=== PATIENT | male | born 1980 | race Caucasian/White ===

== ENCOUNTER → 2020-04-10 11:00 | Outpatient (BNVA) | payer BC, SELFPAY | PROVIDERS: Family Provider Family Medicine; PCP Family Medicine; Visit Provider Nurse Practitioner Family | DX: Z11.59 Encounter for screening for other viral diseases (principal); Z20.828 Contact with and (suspected) exposure to other viral communicable diseases; J02.9 Acute pharyngitis, unspecified; R53.83 Other fatigue | CPT/HCPCS: 87635 ==

== ENCOUNTER 2020-08-05 22:03 | Emergency (ER) | payer BC, SELFPAY ==
[2020-08-05 22:14] VITALS: BP 175/111; PULSE 84; RESP 19; TEMP 36.5; O2SAT 98; BMI 44.1
--- NOTE | 2020-08-05 22:40 | W.ED.ABDPA2 ---
HPI - Abdominal Pain General: Chief Complaint: Abdominal Pain Stated Complaint: lower rt quadrant abd.pain for 51 hours Time Seen by Provider: 08/05/20 22:18 Source: patient Mode of arrival: ambulatory Limitations: no limitations History of Present Illness: HPI narrative: Pleasant 39-year-old male patient presents to the emergency department with 2-day onset of right lower quadrant pain. He reports pain does not radiate, is worse with movement and cough. He denies family history of appendicitis, he denies abdominal surgeries. Last intake of food at 1800 today, drink coffee prior to arrival. History of hypertension, asthma, primary care Dr. Kelvin ALEXANDER elicited complaint: abdominal pain (Localized to the right lower quadrant) Pertinent past history: none Onset (ago): day(s) (2) Pain Consistency: constant (Worsening and more pronounced) Location: RLQ Severity: moderate Quality: sharp Radiation: RLQ Migration to: no migration Exacerbating factors: movement Relieving factors: rest Associated Symptoms: Reports no associated symptoms; Denies bloating, change in bowel habits, chills, constipation, diarrhea, dysuria, fever(s), heartburn, nausea and vomiting Review of Systems General: Reports: 10 or more systems reviewed and unremarkable except in HPI and below Const: Denies: fever(s), chills or diaphoresis Eyes: Denies: blurry vision or eye redness ENMT: Denies: throat pain, dental pain or disequilibrium Card: Denies: chest pain, palpitations or irregular heart rhythm Resp: Denies: dyspnea, productive cough, non-productive cough or wheezing GI: Reports: abdominal pain (localized to the RLQ); Denies: nausea, vomiting, dysphagia, heartburn, diarrhea, constipation, bloating, change in bowel habits or pain on defecation : Denies: difficulty urinating, dysuria or urinary urgency Musc: Denies: neck pain, back pain, joint pain, joint swelling or muscle cramps Skin/Breast: Denies: rash or pruritus Neuro: Denies: headache(s), weakness in extremities or behavioral changes Psych: Denies: anxiety, depression or change in appetite Guy/Lymph: Denies: easy bruising Physical Exam Const: COMMON NORMALS: no acute distress, patient oriented x3, healthy appearing and alert GENERAL APPEARANCE: cooperative, comfortable and well hydrated HENMT: COMMON NORMALS: normocephalic, Normal external nose present and moist oral mucous membranes HEAD & SCALP: normocephalic NOSE: Normal external nose present Eye: COMMON NORMALS: Equal, round and reactive pupils present and EOMs intact bilaterally GENERAL EYE: appearance normal, both eyes and all related structures PUPIL: Yes Equal, round and reactive pupils present Neck/C-Spine: COMMON NORMALS: full ROM and no lymphadenopathy GENERAL: Yes normal visual inspection and Yes trachea midline CERVICAL SPINE: Yes cervical ROM normal Lymph: LYMPHATIC: no lymphadenopathy noted Chest: COMMONS NORMALS: normal inspection of the chest Resp: COMMON NORMALS: normal respiratory effort and clear to auscultation bilaterally AUSCULTATION: clear to auscultation bilaterally Cardio: COMMON NORMALS: regular rhythm, S1 normal heart sound present and S2 normal heart sound present RHYTHM: regular rhythm HEART SOUNDS: S1 normal heart sound present and S2 normal heart sound present GI: COMMON NORMALS: Normal to inspection, nondistended, normoactive bowel sounds present and Soft to palpation INSPECTION: Yes normal to inspection, No Abdominal wall edema, No abdominal distension, Yes central obesity, No scar, No visible pulsation and Yes other (Negative psoas sign) AUSCULTATION: Yes normoactive bowel sounds PALPATION: Yes Soft to palpation, Yes Tenderness to palpation present (GI) Details: RLQ, No Guarding due to palpation present (GI), No Rigid due to palpation, No Hernia present, No Abdominal wall crepitus present, No Rebound tenderness present and Yes Other GI palpation findings present (Negative Moser, positive McBurney's, negative rebound) : COMMON NORMALS: Yes no CVA tenderness BLADDER/KIDNEY EXAM: Yes no CVA tenderness Back/Pelvis: COMMON NORMALS: no CVA tenderness and thoracic and lumbar spine normal to inspection Extremity: COMMON NORMALS: normal to inspection and capillary refill normal Neuro: COMMON NORMALS: patient oriented x3 and no focal motor deficits SENSORIUM/ORIENTATION: Yes alert Psych: COMMON NORMALS: mental status grossly normal, Normal thought process present and cooperative ACTIVITY/MOTOR BEHAVIOR: Yes appropriate eye contact THOUGHT PROCESS: Normal thought process present Skin: COMMON NORMALS: no rashes or lesions noted and turgor normal GENERAL SKIN EXAM: no rashes or lesions noted and turgor normal Course ED course: 39-year-old pleasant male presents to the emergency department with complaints of right lower quadrant pain x2 days, he expresses concern it could be appendicitis. No change in bowel pattern, no fever, vomiting or radiation of pain. CT scan of the abdomen and pelvis with contrast with normal appearance of the appendix, no inflammation noted. Negative free fluid, lymphadenitis appreciated. He reports pain is worse with movement, localized to one area. Muscle strain as possible cause for pain. Toradol administered, advised to take Tylenol for pain with rest of the area until pain is improved. Advised to return to the emergency department if he does develop increased right lower quadrant pain, vomiting or fever. Verbalized understanding. Vital Signs: Vital signs: Vital Signs Temperature 98.1 F 08/06/20 00:49 Pulse Rate 72 08/06/20 00:49 Respiratory Rate 17 08/06/20 00:49 Blood Pressure 164/104 08/06/20 00:49 Pulse Oximetry 97 08/06/20 00:49 MDM - Abdominal Pain Lab Data: Labs: Lab Results 08/05/20 08/05/20 08/05/20 Range/Units 23:00 23:00 23:37 WBC 12.1 H (4.0-10.0) 10^3/ uL RBC 4.95 (4.1-5.3) 10^6/u L Hgb 14.6 (11.7-16.6) g/dL Hct 42.9 (42.0-52.0) % MCV 86.7 (80-94) fL MCH 29.5 (28.0-34.0) pg MCHC 34.0 (30.0-36.0) g/dL RDW 11.7 L (12.1-15.1) % Plt Count 343 (130-400) 10^3/c mm MPV 9.4 (7.4-10.4) fL Neut % (Auto) 62.4 % Lymph % (Auto) 25.6 % Morris % (Auto) 8.0 % Eos % (Auto) 2.8 % Baso % (Auto) 0.8 % Neut # (Auto) 7.53 (1.8-7.7) 10^3/u L Lymph # (Auto) 3.1 (0.8-4.8) 10^3/u L Morris # (Auto) 1.0 H (0.2-0.9) 10^3/u L Eos # (Auto) 0.3 (0.0-0.8) 10^3/u L Baso # (Auto) 0.1 (0.0-0.1) 10^3/u L Nucleated RBC % (a uto) 0 % Nucleated RBCs # 0.0 /100WBC Sodium 137 (136-145) mmol/L Potassium 4.1 (3.5-5.1) mmol/L Chloride 101 (98-107) mmol/L Carbon Dioxide 23 (22-29) mmol/L Anion Gap 17.1 (5-19) BUN 16 (6-20) mg/dL Creatinine 0.7 (0.7-1.2) mg/dL GFR Calculation 124.3 (90-130) mL/min Glucose 139 H (65-115) mg/dL Calculated Osmolal ity 287 (285-295) mOsm/k g Calcium 9.3 (8.5-10.5) mg/dL Total Bilirubin 0.3 (0.15-1.2) mg/dL AST 26 (0-40) U/L ALT 49 H (0-41) U/L Alkaline Phosphata se 93 (40-130) IU/L Total Protein 7.3 (6.6-8.7) g/dL Albumin 4.2 (3.5-5.2) g/dL Globulin 3.1 (1.3-4.6) g/dL Lipase 37 (13-60) U/L Urine Color Yellow (Yellow) Urine Appearance Clear (CLEAR) Urine pH 6.0 (5-7) Ur Specific Gravit y 1.015 (1.005-1.030) Urine Protein Neg (Negative) Urine Glucose (UA) Norm (Normal) Urine Ketones Negative (Negative) Urine Blood Neg (Negative) Urine Nitrate Negative (Negative) Urine Bilirubin Neg (Negative) Urine Urobilinogen Norm (Negative) mg/dL Ur Leukocyte Cecy ase Negative (Negative) Imaging Data ^: CT Abd/Pel: Radiologist's impression: [address] [address] [address] Scan Report Signed Patient: Brian Davis Unit #: [id number] : 1980 Age/Sex: 39 / M ADM Date: 08/05/20 Loc: ER Room/Bed: Attending Dr: Ordering Provider/Ordering MD: Haritha Gotti Date of Service: 08/05/20 Procedure(s): CT abdomen pelvis w con* [id number] Accession Number(s): [id number] Report Number: [id number] PROCEDURE INFORMATION: Exam: CT Abdomen And Pelvis With Contrast Exam date and time: 08/05/2020 10:42 PM Age: 39 years old Clinical indication: Abdominal pain; Localized; Right lower quadrant (rlq); Patient HX: Rlq pain x 3 days; Additional info: Rlq pain x 2 days TECHNIQUE: Imaging protocol: Computed tomography of the abdomen and pelvis with intravenous contrast. Radiation optimization: All CT scans at this facility use at least one of these dose optimization techniques: automated exposure control; mA and/or kV adjustment per patient size (includes targeted exams where dose is matched to clinical indication); or iterative reconstruction. Contrast material: OMNI 300; Contrast volume: 95 ml; Contrast route: INTRAVENOUS (IV); COMPARISON: No relevant prior studies available. RADIATION DOSE METRICS: Total DLP (mGy-cm): 1894.93 FINDINGS: Lungs: Limited assessment of the lung bases fails to reveal evidence for active cardiopulmonary process. Liver: Diffuse fatty infiltration of the liver with hepatomegaly. No visible hepatic mass or cystic structure. Gallbladder and bile ducts: Gallbladder contracted. No visible cholelithiasis. No visible intra or extrahepatic biliary ectasia. Pancreas: Normal. No ductal dilation. Spleen: Normal. No splenomegaly. Adrenal glands: Normal. No mass. Kidneys and ureters: Normal. No hydronephrosis. No visible nephrolithiasis. No visible ureterolithiasis. Stomach and bowel: Assessment of the hollow viscus fails to reveal evidence of active or acute pathology. Nonobstructed bowel pattern. No visible acute diverticulitis. No visible adynamic or reactive ileus. Appendix: The appendix is visualized and appears noninflamed. Intraperitoneal space: No visible evidence of mesenteric lymphadenitis or active mesenteritis/panniculitis. Vasculature: Portal vein patent. The abdominal aorta is nonaneurysmal. Lymph nodes: No current visible evidence of active mesenteric or retroperitoneal lymphadenopathy. Urinary bladder: Unremarkable as visualized. Reproductive: Unremarkable as visualized. Bones/joints: No visible active or acute osseous pathology. Degenerative disc disease with disc space height loss and vacuum disc phenomenon L4/L5 and L5/S1. Soft tissues: Unremarkable. Other findings: Obesity. CT/CT abdomen pelvis w con* [id number] IMPRESSION: 1. Currently no visible evidence of acute abdominal or pelvic pathologic process. 2. The appendix is visualized and appears noninflamed. Radiation Dose CTDIVOL = (mGy): DLP = 1894.93 (mGy-cm) Dictated By: Balwinder Cantrell Signed By: Balwinder Cantrell Signed Date/Time: 08/06/2012 DD/ Discharge Plan Discharge Patient Disposition: Home Clinical Impression: Abdominal pain, RLQ, Muscle strain Condition: Stable Prescriptions: No Action lisinopril 40 mg tablet 40 mg PO DAILY RF: 0 albuterol sulfate [ProAir HFA] 90 mcg/actuation HFA aerosol inhaler 2 puff INHALATION Q6H PRNRF: 0 zolpidem [Ambien] 10 mg tablet PO RF: 0 Discharge Orders: Discharge ED (Routine); Ordered 08/06/20 Ordered By: Haritha Gotti Referrals: Dg Warren MD [Primary Care Provider] - Discharge Diet: Usual diet Discharge Activity: Limit activity as instructed Patient Instructions: Muscle Strain (ED), Abdominal Pain (ED) Activity Restrictions/Additional Instructions: Return to the ED if worsening symptoms such as vomiting, fever or increased RLQ pain occurs May take Tylenol as needed for pain Limit pushing and pulling until RLQ pain improves May apply warm, moist compresses to the area as needed for pain Coding Level of Care Code ED Blanket Folder for Chg Fwd Exam Comprehensive
[2020-08-05 23:05] LABS: Basophils # 0.1 10^3/uL (0.0-0.1); Basophils % 0.8 %; Eosinophils # 0.3 10^3/uL (0.0-0.8); Eosinophils % 2.8 %; Hematocrit 42.9 % (42.0-52.0); Hemoglobin 14.6 g/dL (11.7-16.6); Lymphocytes # 3.1 10^3/uL (0.8-4.8); Lymphocytes % 25.6 %; Mean Corpuscular Hemoglobin 29.5 pg (28.0-34.0); Mean Corpuscular Volume 86.7 fL (80-94); Mean Platelet Volume 9.4 fL (7.4-10.4); Neutrophils # 7.53 10^3/uL (1.8-7.7); Neutrophils % 62.4 %; Nucleated Red Blood Cells % 0 %; Platelet Count 343 10^3/cmm (130-400); Red Blood Count 4.95 10^6/uL (4.1-5.3); Red Cell Distribution Width 11.7 % (12.1-15.1); White Blood Count 12.1 10^3/uL (4.0-10.0)
[2020-08-05 23:26] LABS: Alanine Aminotransferase 49 U/L (0-41); Albumin Level 4.2 g/dL (3.5-5.2); Alkaline Phosphatase 93 IU/L (40-130); Anion Gap 17.1 (5-19); Aspartate Amino Transferase 26 U/L (0-40); Blood Urea Nitrogen 16 mg/dL (6-20); Calcium 9.3 mg/dL (8.5-10.5); Carbon Dioxide 23 mmol/L (22-29); Chloride 101 mmol/L (98-107); Globulin 3.1 g/dL (1.3-4.6); Glomerular Filtration Rate 124.3 mL/min (90-130); Glucose 139 mg/dL (65-115); Lipase 37 U/L (13-60); Osmolality Calculated 287 mOsm/kg (285-295); Potassium 4.1 mmol/L (3.5-5.1); Sodium 137 mmol/L (136-145); Total Bilirubin 0.3 mg/dL (0.15-1.2); Total Protein 7.3 g/dL (6.6-8.7)
[2020-08-05 23:28] VITALS: BP 143/80; PULSE 92; RESP 17; O2SAT 99
[2020-08-05 23:30] VITALS: BP 143/80; PULSE 91; RESP 17; O2SAT 98
[2020-08-05] MEDS: iohexol 300 mg/mL 100 mL Btl IV (23:42)
[2020-08-05 23:46] LABS: Add Urine Microscopic? NO
[2020-08-05 23:49] LABS: Bilirubin Urine Neg (Negative); Blood Urine Neg (Negative); Glucose Urine UA Norm (Normal); Ketones Urine Negative (Negative); Nitrate Urine Negative (Negative); Protein Urine Neg (Negative); Specific Gravity, Urine 1.015 (1.005-1.030); Urine Appearance Clear (CLEAR); Urine Color Yellow (Yellow)
[2020-08-05 23:50] LABS: Leukocyte Esterase Urine Negative (Negative); Urobilinogen Urine Norm (Negative)
[2020-08-06] MEDS: ketorolac 30 mg/mL INJ 15 MG IVP (00:44)
[2020-08-06 00:49] VITALS: BP 164/104; PULSE 72; RESP 17; TEMP 36.7; O2SAT 97
== END 2020-08-06 00:49 | disposition home or self-care (01) ==
PROVIDERS: Emergency Medicine; Emergency Provider Nurse Practitioner Family; PCP Family Medicine
DX: S39.011A Strain of muscle, fascia and tendon of abdomen, initial encounter (principal); X58.XXXA Exposure to other specified factors, initial encounter
CPT/HCPCS: 12345; 74177; 80053; 81003; 83690; 85025; 96374; 96375; 99283; J1885; Q9967

== ENCOUNTER 2021-09-13 12:00 | Outpatient (CLI) | payer BC, SELFPAY | END 2021-09-13 12:01 | disposition home or self-care (01) | LOC: SLEEP 09-14 13:06 | PROVIDERS: PCP Family Medicine; Visit Provider Family Medicine | DX: G47.10 Hypersomnia, unspecified (principal) | CPT/HCPCS: G0399 ==

== ENCOUNTER → 2021-11-08 15:39 | Outpatient (BNVA) | payer BC, SELFPAY | PROVIDERS: PCP Family Medicine; Visit Provider Surgery | DX: Z20.822 Contact with and (suspected) exposure to COVID-19 (principal) | CPT/HCPCS: 87635 ==

== ENCOUNTER 2021-11-12 07:50 | Day surgery (SDC) | payer BC, SELFPAY ==
[2021-11-10 12:24] VITALS: BMI 40.1
--- NOTE | 2021-11-12 08:01 | P.ANESASSM_ITS ---
Pre-Anesthetic Assessment Height/Weight: Height 1.78 m Weight 127.006 kg Preop Diagnosis: Abdominal pain Operation Date: 11/12/21 09:15 Proposed Procedures p EGD r10.12/12855(Not Applicable) - Bryn Monroy MD Familial anesthetic complications: I was a little difficult to wake up from the propofol last time Was Beta Daisha taken within 24 hours: N/A Was Clonidine taken within 24 hours: N/A Last intake: > 8 hrs Social No alcohol and No tobacco Exam alert, oriented x 3, clear to auscultation bilaterally and regular rate & rhythm Airway Mallampati: Class II Dentition: full Pulmonary Asthma (rarely needs inhaler) CV/HEM Hypertension None reported Hepatic None reported GI Gastroesophageal Reflux Disease Metabolic Diabetes Mellitus (recently diagnosed) and Hyperlipidemia [facility] None reported Neuropsych None reported Anesthetic Plan ASA status: 2 Anesthesia: MAC Medications/Allergies Home Medications Medication Instructions Recorded Confirmed Last Taken Type albuterol sulfate 90 mcg/actuation 2 puff INHALATION Q6H PRN 04/10/20 11/10/21 Unknown History aerosol inhaler (ProAir HFA) lisinopril 40 mg tablet 40 mg PO DAILY 04/10/20 11/10/21 Unknown History zolpidem 10 mg tablet (Ambien) 10 mg PO DAILY 04/10/20 11/10/21 Unknown History metformin 500 mg tablet,extended 1,000 mg PO DAILY 11/10/21 11/10/21 Unknown History release 24 hr multivitamin 2 tab PO DAILY 11/10/21 11/10/21 Unknown History omega 9-axa-qzz-fish oil 300 1 cap PO DAILY 11/10/21 11/10/21 Unknown History mg-1,000 mg capsule (Fish Oil) pantoprazole 40 mg tablet,delayed 40 mg PO DAILY 11/10/21 11/10/21 Unknown History release rosuvastatin 40 mg tablet 40 mg PO DAILY 11/10/21 11/10/21 Unknown History semaglutide (Ozempic) 0.5 mg SUBCUT DIRECTED 11/10/21 11/10/21 Unknown History Allergies Allergy/AdvReac Type Severity Reaction Status Date / Time Calcium Channel Blocking Allergy Unknown Verified 09/24/21 17:33 Agents-Dih latex Allergy ALGY-Rash Verified 09/24/21 17:33 PFSH Anesthesia Social History Smoking and tobacco status: former smoker Data Anesthesia Cardiac Studies: No Data to Display
[2021-11-12 08:24] VITALS: BP 127/82; PULSE 81; RESP 16; TEMP 36.1; O2SAT 96
[2021-11-12] MEDS: sodium chloride 0.9% 1,000 ML 30 ML IV (08:38)
--- NOTE | 2021-11-12 08:44 | P.HP_ITS ---
Same Day Surgery H&P Indication for Procedure/HPI DATE OF PROCEDURE: November 12, 2021 CHIEF COMPLAINT/INDICATIONFOR SURGICAL PROCEDURE: Abdominal pain PREOP DIAGNOSIS: Abdominal pain PLANNED PROCEDURE: Operation Date: 11/12/21 09:15 Proposed Procedures p EGD r10.12/05339(Not Applicable) - Bryn Monroy MD 09/23/2021 This is a pleasant 40 years old gentleman morbidly obese with a current weight of 297 pounds and BMI of 42.6, patient reports that he has history of upper abdominal pain particularly towards the left side associated with history of acid reflux and has been started on PPI for the past 3 weeks or so. He reports that he cannot each much, have early satiety no nausea or vomiting yet there is heartburn. The pain is mostly sharp gets better without eating gets worse with full stomach. Patient is well known history of diabetes mellitus type 2 which raises my concern for gastroparesis. Also he was recently diagnosed with severe obesity related obstructive sleep apnea. Patient is referred to my practice for further evaluation 11/12/2021 Patient comes today for diagnostic EGD. Gastric emptying studies are pending ROS All systems have been reviewed negative except as the above or problem list Medications/Allergies* Home Medications Medication Instructions Recorded Confirmed Type albuterol sulfate 90 mcg/actuation 2 puff INHALATION Q6H PRN 04/10/20 11/12/21 History aerosol inhaler (ProAir HFA) lisinopril 40 mg tablet 40 mg PO DAILY 04/10/20 11/10/21 History zolpidem 10 mg tablet (Ambien) 10 mg PO DAILY 04/10/20 11/10/21 History metformin 500 mg tablet,extended 1,000 mg PO DAILY 11/10/21 11/10/21 History release 24 hr multivitamin 2 tab PO DAILY 11/10/21 11/10/21 History omega 8-ski-dqi-fish oil 300 1 cap PO DAILY 11/10/21 11/10/21 History mg-1,000 mg capsule (Fish Oil) pantoprazole 40 mg tablet,delayed 40 mg PO DAILY 11/10/21 11/10/21 History release rosuvastatin 40 mg tablet 40 mg PO DAILY 11/10/21 11/10/21 History semaglutide (Ozempic) 0.5 mg SUBCUT DIRECTED 03/16/22 03/16/22 History Allergies/Adverse Reactions Allergy/AdvReac Type Severity Reaction Status Date / Time Calcium Channel Blocking Allergy Unknown Verified 11/12/21 08:45 Agents-Dih latex Allergy ALGY-Rash Verified 11/12/21 08:45 Current Medications: Generic Name Dose Route Start Last Admin Trade Name Freq PRN Reason Stop Dose Admin Sodium Chloride 1,000 mls @ 30 mls/hr 11/12/21 08:00 11/12/21 08:38 Sodium Chloride 0.9% IV 11/13/21 07:59 30 mls/hr .Q24H VIN Administration Pertinent History/Comorbid Conditions* Social History Smoking and tobacco status: former smoker Pertinent Exam Findings alert, oriented x 3, regular rate & rhythm and procedure specific exam findings (Abdominal examination nontender nondistended soft) Recommendations Surgery/Procedure today (Diagnostic EGD) Coding Level of Care Code Acute Can Filling Room Sweeper for Bakari Tompkins
[2021-11-12 09:34] VITALS: BP 124/69; PULSE 80; RESP 16; TEMP 36.4; O2SAT 94
[2021-11-12 09:43] VITALS: BP 146/95; PULSE 72; RESP 18; O2SAT 98
--- NOTE | 2021-11-12 09:45 | ANE.PACU2 ---
Inpatient post-anesthesia follow up: Airway intact: Yes Vital signs: Temperature 97.6 F Pulse Rate 72 Respiratory Rate 18 Blood Pressure 146/95 Pulse Oximetry 98 Oxygen Delivery Me thod Room Air Oxygen Flow Rate Fraction of Inspir ed Oxygen Hydration adequate: Yes Nausea and vomiting: No Pain level: 1 Mental status: Baseline
[2021-11-12 10:00] VITALS: BP 130/93; PULSE 66; RESP 18; TEMP 36.4; O2SAT 99
== END 2021-11-12 10:05 | disposition home or self-care (01) ==
PROVIDERS: PCP Family Medicine; Visit Provider Surgery
PROC: 0DJ08ZZ Inspection of Upper Intestinal Tract, Via Natural or Artificial Opening Endoscopic (ICD-10-PCS; CPT 43235; principal; 2021-11-12 09:15)
DX: R10.12 Left upper quadrant pain (principal); K21.00 Gastro-esophageal reflux disease with esophagitis, without bleeding; K31.89 Other diseases of stomach and duodenum; K29.70 Gastritis, unspecified, without bleeding; K29.80 Duodenitis without bleeding; K21.9 Gastro-esophageal reflux disease without esophagitis; E11.9 Type 2 diabetes mellitus without complications; E78.5 Hyperlipidemia, unspecified; Z79.84 Long term (current) use of oral hypoglycemic drugs; Z87.891 Personal history of nicotine dependence
CPT/HCPCS: 43239; 88305; J2704; J7030

== ENCOUNTER 2021-12-18 08:56 | Emergency (ER) | payer OTHER, BC, SELFPAY ==
[2021-12-18 09:11] VITALS: BP 151/92; PULSE 76; RESP 18; O2SAT 100; BMI 38.0
[2021-12-18] MEDS: ketorolac 30 mg/mL INJ IVP (10:05)
[2021-12-18] MEDS: dexamethasone 10 mg/mL INJ IVP (10:05)
[2021-12-18 10:06] VITALS: RESP 20
[2021-12-18] MEDS: morphine 4 mg/mL SDV 1 mL 6 MG IVP (10:06)
[2021-12-18] MEDS: orphenadrine 30 mg/mL Inj 2 mL 60 MG IVP (10:06)
[2021-12-18 10:07] VITALS: BP 142/105; PULSE 78; RESP 20; O2SAT 100
--- NOTE | 2021-12-18 10:09 | W.ED.BACK ---
HPI - Back Pain/Injury General: Chief Complaint: Back Pain/Injury Stated Complaint: BACK PAIN Time Seen by Provider: 12/18/21 09:02 Source: patient Mode of arrival: ambulatory Limitations: no limitations History of Present Illness: 41-year-old male presents to the emergency room with back pain. 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 No urinary retention reported no fecal incontinence. There is no direct trauma. He has had problems with his back in the past, was exacerbated today as he was transferring a patient. MD elicited complaint: back pain and back injury Pertinent past history: prior back pain Onset (ago): minute(s) Timing: constant Severity: severe Quality: spasming Location: lumbar spine Radiation: left upper leg Exacerbating factors: movement and walking Relieving factors: supine Context: while lifting and turning/twisting Associated symptoms: Deny abdominal pain, arthralgias, chills, change in bowel habits, difficulty walking, dysuria, fatigue, fecal incontinence, fever(s), hematuria, myalgias, nausea, numbness, syncope, tingling/numbness/burning, urinary frequency, urinary urgency, vomiting or weakness Review of Systems Const: Denies: fever(s), chills or fatigue ENMT: Denies: throat pain, ear or mastoid pain, nasal discharge or nasal congestion Card: Denies: syncope Resp: Denies: dyspnea, productive cough or non-productive cough GI: Denies: abdominal pain, nausea, vomiting, fecal incontinence or change in bowel habits : Denies: dysuria, urinary urgency or hematuria Skin/Breast: Denies: rash or pruritus Neuro: Denies: difficulty walking PFS ED PFSH: Medical History (Updated 12/21/21 @ 09:13 by Macario Burks DO) Asthma Diabetic gastroparesis Helicobacter pylori gastritis Morbidly obese Surgical History (Updated 12/21/21 @ 09:13 by Macario Burks DO) History of colonoscopy 2008 or 2009 Social History Smoking and tobacco status: former smoker Physical Exam Const: COMMON NORMALS: no acute distress GENERAL APPEARANCE: cooperative and comfortable ORIENTATION/CONSCIOUSNESS: Yes awake, Yes oriented to person, Yes oriented to place and Yes oriented to time HENMT: COMMON NORMALS: normocephalic, atraumatic and hearing grossly normal bilaterally HEAD & SCALP: normocephalic and atraumatic Neck/C-Spine: COMMON NORMALS: full ROM and no JVD Resp: COMMON NORMALS: normal respiratory effort, No retractions, No use of accessory muscles and clear to auscultation bilaterally AUSCULTATION: clear to auscultation bilaterally Cardio: COMMON NORMALS: no JVD, regular rate, regular rhythm and No murmurs present (Cardio) RATE: regular rate RHYTHM: regular rhythm GI: COMMON NORMALS: Soft to palpation and No hepatosplenomegaly present AUSCULTATION: Yes normoactive bowel sounds PALPATION: Yes Soft to palpation, No Tenderness to palpation present (GI), No Guarding due to palpation present (GI) and Yes No hepatosplenomegaly present Extremity: COMMON NORMALS: normal to inspection, capillary refill normal, no clubbing, cyanosis or edema, no calf tenderness and no pedal edema Neuro: SENSORIUM/ORIENTATION: Yes oriented to person, Yes oriented to place and Yes oriented to time OTHER: Patellar tendon reflexes +1 of 2 at the Achilles tendon sensation lower extremities normal neurovascular intact straight leg raising is positive on the left leg Skin: COMMON NORMALS: no rashes or lesions noted GENERAL SKIN EXAM: no rashes or lesions noted Course Vital Signs: Vital signs: Vital Signs Pulse Rate 78 12/18/21 10:07 Respiratory Rate 20 H 12/18/21 10:07 Blood Pressure 142/105 12/18/21 10:07 Pulse Oximetry 100 12/18/21 10:07 MDM - Back Pain/Injury Medical Decision Making Patient improved with medications given will discharge home with steroid taper hydrocodone as needed diclofenac. Muscle relaxer as needed have him follow-up with primary care or Workmen's Comp. physician in the next 2 to 3 days work restriction given for 10 pounds. Return if has worsening or change or problems. Medical Records I reviewed the patient's medical records. Labs I reviewed the patient's lab results. Laboratory Results Urine Opiates Screen Negative ng/mL (Negative) 12/18/21 10:00 Ur Barbiturates Screen Negative ng/mL (Negative) 12/18/21 10:00 Ur Phencyclidine Scrn Negative ng/mL (Negative) 12/18/21 10:00 Ur Amphetamines Screen Negative ng/mL (Negative) 12/18/21 10:00 U Benzodiazepines Scrn Negative ng/mL (Negative) 12/18/21 10:00 Urine Cocaine Screen Negative ng/mL (Negative) 12/18/21 10:00 U Marijuana (THC) Screen Negative ng/mL (Negative) 12/18/21 10:00 Discharge Plan Discharge Patient Disposition: Home Clinical Impression: Strain of lumbar region Condition: Stable Prescriptions: New hydrocodone-acetaminophen 5-325 mg tablet 1 tab PO Q6H PRN (Reason: pain) Qty: 20 0RF prednisone 20 mg tablet 20 mg PO TID Qty: 15 0RF Rx Instructions: 1 p.o. 3 times daily x3 days, 1 p.o. twice daily x2 days, 1 p.o. daily x2 days diclofenac sodium 75 mg tablet,delayed release (DR/EC) 75 mg PO Q12H PRN (Reason: pain) Qty: 20 0RF tizanidine 4 mg capsule 4 mg PO Q6H PRN (Reason: muscle spasticity) Qty: 30 0RF Rx Instructions: do not exceed 3 doses per 24 hrs No Action lisinopril 40 mg tablet 40 mg PO DAILY 0RF albuterol sulfate [ProAir HFA] 90 mcg/actuation HFA aerosol inhaler 2 puff INHALATION Q6H PRN (Reason: Shortness Of Breath) 0RF zolpidem [Ambien] 10 mg tablet 10 mg PO DAILY 0RF pantoprazole 40 mg tablet,delayed release (DR/EC) 40 mg PO DAILY 0RF metformin 500 mg tablet extended release 24 hr 1,000 mg PO DAILY 0RF rosuvastatin 40 mg tablet 40 mg PO DAILY 0RF multivitamin Tablet,Chewable 2 tab PO DAILY 0RF omega 3-vas-xxf-fish oil [Fish Oil] 300-1,000 mg Capsule 1 cap PO DAILY 0RF Ozempic 0.25 mg or 0.5 mg(2 mg/1.5 mL) pen injector 0.5 mg SUBCUT DIRECTED 0RF Rx Instructions: weekly Discharge Orders: Discharge ED (Routine); Ordered 12/18/21 Ordered By: Macario Burks Referrals: Dg Warren MD [Primary Care Provider] - Discharge Diet: Advance as tolerated Discharge Activity: Limit activity as instructed Patient Instructions: Opioid Safety Activity Restrictions/Additional Instructions: Follow-up with your work comp or primary care doctor within the next 3 days. Do not lift greater than 10 pounds do not lift above the shoulder stoop or bend. Coding Level of Care Code ED [employer] Mechanic for Bakari Tompkins
[2021-12-18 10:30] LABS: Amphetamines Screen Urine Negative (Negative); Barbiturates Screen Urine Negative (Negative); Benzodiazepines Screen Urine Negative (Negative); Cocaine Screen Urine Negative (Negative); Opiate Screen Urine Negative (Negative); PCP Screen Urine Negative (Negative); THC Screen Urine Negative (Negative)
== END 2021-12-18 10:36 | disposition home or self-care (01) ==
PROVIDERS: Emergency Provider Family Medicine; PCP Family Medicine
DX: M54.50 Low back pain, unspecified (principal); S39.012A Strain of muscle, fascia and tendon of lower back, initial encounter; X58.XXXA Exposure to other specified factors, initial encounter
CPT/HCPCS: 80306; 96374; 96375; 99284; J1100; J1885; J2270; J2360

== ENCOUNTER → 2022-05-07 13:48 | Outpatient (BNVA) | payer BC, SELFPAY | PROVIDERS: PCP Family Medicine; Visit Provider Nurse Practitioner Family | DX: S69.91XA Unspecified injury of right wrist, hand and finger(s), initial encounter (principal); W22.8XXA Striking against or struck by other objects, initial encounter | CPT/HCPCS: 73130 ==

== ENCOUNTER 2022-09-05 11:43 | Outpatient (CLI) | payer BC, SELFPAY ==
--- NOTE | 2022-09-05 12:02 | XRR_ITS ---
PROCEDURE INFORMATION: Exam: XR Right Hand Exam date and time: 09/05/2022 12:10 PM Age: 41 years old Clinical indication: Patient HX: Right hand pain in forth and fifth digits, patient stated he had a lesion in his right forearm; Additional info: RT metacarpal pain TECHNIQUE: Imaging protocol: Radiologic exam of the Right hand. Views: 3 or more views. 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 No questionable lucent lines noted involving medial cortex of the 5th metacarpal. This could be an incomplete fracture or stress injury. This is however, similar to the previous examination and could be atypical nutrient vessels/canals. Soft tissues: Normal. XR/XR hand RT min 3V* [id number] IMPRESSION: 1. Stable medial cortical lines noted within the 5th metacarpal however, these are stable likely chronic. 2. Stable appearing lesion of the distal radius. 3. No acute abnormality.
== END 2022-09-05 11:44 | disposition home or self-care (01) ==
LOC: RAD 11:50
PROVIDERS: PCP Family Medicine; Visit Provider Family Medicine
DX: M79.641 Pain in right hand (principal)
CPT/HCPCS: 73130

== ENCOUNTER → 2022-09-30 09:40 | Outpatient (BNVA) | payer BC, SELFPAY | PROVIDERS: PCP Family Medicine; Referring Provider Family Medicine; Visit Provider Student in an Organized Health Care Education/Training Program | DX: S69.81XA Other specified injuries of right wrist, hand and finger(s), initial encounter (principal); S63.91XA Sprain of unspecified part of right wrist and hand, initial encounter; S66.911A Strain of unspecified muscle, fascia and tendon at wrist and hand level, right hand, initial encounter; M89.9 Disorder of bone, unspecified; W21.89XA Striking against or struck by other sports equipment, initial encounter; Y93.73 Activity, racquet and hand sports | CPT/HCPCS: 73130 ==

== ENCOUNTER 2022-11-03 14:18 | Outpatient (CLI) | payer BC, SELFPAY ==
--- NOTE | 2022-11-03 14:30 | MR_ITS ---
WS: [id number] MRI RIGHT WRIST without CONTRAST. COMPARISON: RIGHT hand 09/30/2022 Multiplanar, multisequence imaging is performed without contrast. No fluid noted within the distal radial ulnar joint. There is abnormal signal within the ulnar side o f the triangular fibrocartilage. The radial portion of the TFCC appears intact. There is an addition al fluid-filled mass measuring 7 x 6 mm just proximal to the pisiform which may be a ganglion cyst. No marrow edema or fracture. Scapholunate ligament is intact. Carpal rows are normal. No muscle atrop hy or edema. MR/MR wrist RT wo con* [id number] IMPRESSION: 1. High-grade tear involving the ulnar side of the triangular fibrocartilage. 2. No distal radial ulnar joint effusion. 3. Small cystic collection just proximal to the pisiform measures 7 x 6 mm and is likely a ganglion. 4. Scapholunate ligament is intact.
== END 2022-11-03 14:19 | disposition home or self-care (01) ==
PROVIDERS: PCP Family Medicine; Visit Provider Student in an Organized Health Care Education/Training Program
DX: M89.9 Disorder of bone, unspecified (principal); S63.591A Other specified sprain of right wrist, initial encounter; X58.XXXA Exposure to other specified factors, initial encounter
CPT/HCPCS: 73221

== ENCOUNTER 2023-12-18 07:57 | Outpatient (CLI) | payer BC, SELFPAY ==
--- NOTE | 2023-12-18 08:01 | MR_ITS ---
WS: [id number] MRI HEAD WITH CONTRAST TECHNIQUE: Sagittal T1, T2 axial, T2 axial FLAIR, axial susceptibility weighted imaging, axial diffus ion weighted images, and coronal T2 images were obtained. Pre and post-T1 axial and post T1 coronal i mages. ADC and FSPGR images. Pituitary protocol utilized. CLINICAL INFORMATION: HYPERPROLACTINEMIA COMPARISON: None. FINDINGS: Asymmetric prominent pituitary tissue in the sella eccentric to the RIGHT. Suspected T2 hyperintense hypoenhancing lesion in the posterior RIGHT aspect of the pituitary measuring 4.4 x 5.2 mm suspicious for pituitary microadenoma. Recommend correlation with pituitary function studies. This is best seen on the sagittal imaging. Normal posterior fossa. Normal vascular flow voids at the skull base. No extra-axial fluid collection s. No evidence of mass or mass effect. Mild periventricular and subcortical white matter changes nonspecific in a patient this age but can b e seen with hypertension, diabetes, and migraine headaches. No significant parenchymal volume loss. N o hemosiderin on the susceptibly weighted images. Mild mucosal thickening in the ethmoid air cells. M astoid air cells are well aerated. Normal posterior nasopharynx. Temporal lobes and hippocampal forma tions are normal in appearance. No evidence of restricted diffusion to suggest acute ischemia. IMPRESSION: 1. Suspected pituitary microadenoma in the dorsal RIGHT sella with T2 hyperintensity and hypoenhance ment. This measures approximately 5.2 x 4.5 mm. Recommend correlation with pituitary function studies . 2. Normal optic chiasm and pituitary infundibulum. 3. Mild periventricular and subcortical white matter changes nonspecific in a patient this age but c an be seen with hypertension, diabetes, and migraine headaches. Recommend 6-month follow-up MRI of the head without and with gadolinium enhanced with pituitary kenney col. Dynamic pituitary protocol should be performed at that time. Exam should be scheduled on the [facility] on MRI at the [facility] [place] in order to obtain dynamic pituitary sequences
[2023-12-18] MEDS: gadobenate dimeglumine 20 mL vial IV (08:46)
== END 2023-12-18 07:58 | disposition home or self-care (01) ==
LOC: RAD 07:57
PROVIDERS: PCP Family Medicine; Visit Provider Family Medicine
DX: E22.1 Hyperprolactinemia (principal)
CPT/HCPCS: 70553; A9577

== ENCOUNTER → 2024-02-05 09:41 | Outpatient (BNVA) | payer BC, SELFPAY | PROVIDERS: PCP Family Medicine; Referring Provider Family Medicine; Visit Provider Internal Medicine | DX: E23.7 Disorder of pituitary gland, unspecified (principal); D35.2 Benign neoplasm of pituitary gland; Z79.899 Other long term (current) drug therapy | CPT/HCPCS: 36415; 82024; 82533; 84146; 84305; 84402; 84403; 84439; 84443 ==

== ENCOUNTER 2024-04-10 06:57 | Outpatient (CLI) | payer BC, SELFPAY ==
[2024-04-10 07:48] LABS: Prolactin 2.49 ng/mL (4.0-15.2)
[2024-04-10 08:20] LABS: Testosterone Total 147.5 ng/dL (249-836)
== END 2024-04-10 06:58 | disposition home or self-care (01) ==
PROVIDERS: PCP Family Medicine; Visit Provider Internal Medicine
DX: E23.7 Disorder of pituitary gland, unspecified (principal); D35.2 Benign neoplasm of pituitary gland
CPT/HCPCS: 36415; 84146; 84403

== ENCOUNTER 2024-05-22 14:45 | Outpatient (CLI) | payer BC, SELFPAY ==
--- NOTE | 2024-05-22 15:15 | MR_ITS ---
WS: [id number] MRI BRAIN WITHOUT AND WITH CONTRAST, ATTENTION DIRECTED TO THE PITUITARY GLAND HISTORY: suspected pituitary adenoma COMPARISON: 12/18/2023 TECHNIQUE: Diffusion-weighted imaging, axial T2 sequence, and postcontrast images in 3 planes are per formed. High-resolution coronal and sagittal imaging performed through the pituitary region with and without intravenous gadolinium. There is continued very slight fullness in the RIGHT lateral sella turcica. Pituitary microadenoma is less distinct as compared to the prior examination. There is mild fullness with a hypoenhancing lesi on measuring approximately 4 x 6 x 4 mm. No displacement of the infundibulum. No significant encaseme nt of the carotid artery. Normal position of the optic chiasm. Normal diffusion imaging. No hemorrhage. Mild periventricular and subcortical white matter changes re lated to aging. No large territory infarct. Ventricles are normal size. No intracranial mass or abnor mal enhancement. No vascular malformation. Visualized enhancement of the [place] of [place] is normal. Normal flow voids. Paranasal sinus and mastoid air cells are clear. MR/MR pituitary wo/w con* [id number] IMPRESSION: 1. RIGHT lateral pituitary microadenoma is reidentified measuring just slightl y smaller but is less distinct. May be related to posttreatment improvement. Le lissy measures 4 x 6 x 4 mm. No displacement of the infundibulum or optic chiasm . No encasement of the carotid artery. 2. Mild small vessel disease with no acute infarct. No progression. 3. No hemorrhage.
[2024-05-22] MEDS: gadobenate dimeglumine 20 mL vial IV (16:04)
== END 2024-05-22 14:46 | disposition home or self-care (01) ==
LOC: RAD 14:45
PROVIDERS: PCP Family Medicine; Visit Provider Internal Medicine
DX: D35.2 Benign neoplasm of pituitary gland (principal); E11.9 Type 2 diabetes mellitus without complications; E11.43 Type 2 diabetes mellitus with diabetic autonomic (poly)neuropathy; K31.84 Gastroparesis
CPT/HCPCS: 70553

== ENCOUNTER 2024-07-08 08:37 | Outpatient (CLI) | payer BC, SELFPAY ==
[2024-07-08 09:25] LABS: Basophils # 0.1 10^3/uL (0.0-0.1); Basophils % 1.1 %; Eosinophils # 0.2 10^3/uL (0.0-0.8); Eosinophils % 2.6 %; Hematocrit 43.7 % (37-53); Lymphocytes # 2.4 10^3/uL (0.8-4.8); Lymphocytes % 32.6 %; Mean Corpuscular Hemoglobin 29.6 pg (27-33); Mean Corpuscular Volume 89.7 fl (82-101); Mean Platelet Volume 9.5 fL (7.4-10.4); Monocytes # 0.7 10^3/uL (0.2-0.9); Monocytes % 9.3 %; Neutrophils # 3.94 10^3/uL (1.8-7.7); Neutrophils % 54.1 %; Nucleated Red Blood Cells % 0 %; Platelet Count 302 10^3/cmm (157-399); Red Blood Count 4.87 10^6/uL (3.85-5.65); Red Cell Distribution Width 11.7 % (12.1-15.1); White Blood Count 7.29 10^3/uL (3.29-11.43)
[2024-07-08 09:32] LABS: Testosterone Total 184.4 ng/dL (249-836)
[2024-07-08 10:39] LABS: Prolactin < 1.6 ng/mL (4.0-15.2)
== END 2024-07-08 08:38 | disposition home or self-care (01) ==
LOC: LAB 08:38
PROVIDERS: PCP Family Medicine; Visit Provider Internal Medicine
DX: D35.2 Benign neoplasm of pituitary gland (principal); E11.43 Type 2 diabetes mellitus with diabetic autonomic (poly)neuropathy; K31.84 Gastroparesis; E11.9 Type 2 diabetes mellitus without complications
CPT/HCPCS: 36415; 84146; 84403; 85025; G0103

== ENCOUNTER 2024-07-10 07:11 | Outpatient (CLI) | payer BC, SELFPAY ==
[2024-07-10 07:55] LABS: Urine Creatinine 117 mg/dL (39-259)
[2024-07-10 08:15] LABS: Total Volume Urine 1800 ml
== END 2024-07-10 07:12 | disposition home or self-care (01) ==
PROVIDERS: PCP Family Medicine; Visit Provider Internal Medicine
DX: D35.2 Benign neoplasm of pituitary gland (principal); E11.43 Type 2 diabetes mellitus with diabetic autonomic (poly)neuropathy; K31.84 Gastroparesis; E11.9 Type 2 diabetes mellitus without complications
CPT/HCPCS: 82530; 82570

== ENCOUNTER → 2024-10-15 09:39 | Outpatient (BNVA) | payer BC, SELFPAY | PROVIDERS: PCP Family Medicine; Visit Provider Internal Medicine | DX: D35.2 Benign neoplasm of pituitary gland (principal); E11.43 Type 2 diabetes mellitus with diabetic autonomic (poly)neuropathy; K31.84 Gastroparesis; E11.9 Type 2 diabetes mellitus without complications; M25.50 Pain in unspecified joint; M79.10 Myalgia, unspecified site; E55.9 Vitamin D deficiency, unspecified | CPT/HCPCS: 36415; 86431 ==

== ENCOUNTER → 2025-02-17 08:25 | Outpatient (BNVA) | payer BC, SELFPAY | PROVIDERS: PCP Family Medicine; Referring Provider Internal Medicine Rheumatology; Visit Provider Anesthesiology Pain Medicine | DX: M51.360 Other intervertebral disc degeneration, lumbar region with discogenic back pain only (principal); M51.370 Other intervertebral disc degeneration, lumbosacral region with discogenic back pain only | CPT/HCPCS: 72110 ==

== ENCOUNTER 2025-03-05 12:21 | Outpatient (RCR) | payer BC, SELFPAY | END 2025-03-27 23:59 | disposition home or self-care (01) | LOC: SPT 12:21 | PROVIDERS: PCP Family Medicine; Visit Provider Anesthesiology Pain Medicine | DX: M54.50 Low back pain, unspecified (principal) | CPT/HCPCS: 97110; 97161 ==

== ENCOUNTER 2025-03-28 05:00 | Outpatient (RCR) | payer BC, SELFPAY | END 2025-04-27 23:59 | disposition home or self-care (01) | LOC: SPT 05:00 | PROVIDERS: PCP Family Medicine; Visit Provider Anesthesiology Pain Medicine | DX: M54.50 Low back pain, unspecified (principal) | CPT/HCPCS: 97110 ==

== ENCOUNTER → 2025-04-21 08:30 | Outpatient (BNVA) | payer BC, SELFPAY | PROVIDERS: PCP Family Medicine; Visit Provider Anesthesiology Pain Medicine | DX: M54.6 Pain in thoracic spine (principal) | CPT/HCPCS: 72072 ==

== ENCOUNTER 2025-04-28 05:00 | Outpatient (RCR) | payer BC, SELFPAY | END 2025-05-27 23:59 | disposition home or self-care (01) | LOC: SPT 05:00 | PROVIDERS: PCP Family Medicine; Visit Provider Anesthesiology Pain Medicine | DX: M54.50 Low back pain, unspecified (principal) | CPT/HCPCS: 97110 ==

== ENCOUNTER 2025-05-05 14:15 | Outpatient (CLI) | payer BC, SELFPAY ==
--- NOTE | 2025-05-05 14:30 | MR_ITS ---
WS: [id number] MRI LUMBAR SPINE NONCONTRAST HISTORY: M54.16 - Radiculopathy, lumbar region COMPARISON: None available. TECHNIQUE: Sagittal and axial multisequence imaging is submitted. Normal lumbar alignment with no compression fractures or marrow edema. Disc spaces are narrowed and desiccated, most significant at L4-5 and L5-S1. Conus terminates normally at L1-2 disc level. L1-L2: Normal. L2-L3: Mild annular disc bulge. Shallow RIGHT paracentral disc protrusion with mild facet and ligamentum flavum hypertrophy. Mild bilateral foraminal stenosis. L3-L4: Mild annular disc bulge with a central disc protrusion. Effacement and deformity of the ventral thecal sac. Mild central and subarticular recess stenosis. There is slight disc contact on the traversing L4 nerve roots. Mild foraminal stenosis. L4-L5: Diffuse osteophytic ridging with disc bulging and central annular fissure. Mild subarticular recess and foraminal stenosis. Mild facet arthritis. L5-S1: Diffuse osteophytic ridging. Small central disc osteophyte complex. Larger RIGHT foraminal disc osteophyte complex. There is very slight contact on the RIGHT S1 nerve root. Mild disc osteophyte contact on the exiting RIGHT L5 nerve root. Paravertebral soft tissues are negative. MR/MR lumbar spine wo con* [id number] IMPRESSION: 1. No high-grade central or foraminal stenosis. 2. L5-S1: Small central and RIGHT foraminal disc osteophyte complexes. Mild di sc osteophyte contact on the RIGHT traversing and exiting nerve roots. 3. L4-5: Mild subarticular recess and foraminal stenosis. 4. Mild foraminal stenosis at L2-3. 5. Mild central, subarticular recess and foraminal stenosis at L3-4. 6. Mild facet joint arthropathy from L2-3 to L5-S1.
== END 2025-05-05 14:16 | disposition home or self-care (01) ==
LOC: RAD 14:16
PROVIDERS: PCP Family Medicine; Visit Provider Anesthesiology Pain Medicine
DX: M54.16 Radiculopathy, lumbar region (principal); M25.78 Osteophyte, vertebrae; M48.061 Spinal stenosis, lumbar region without neurogenic claudication; M47.817 Spondylosis without myelopathy or radiculopathy, lumbosacral region
CPT/HCPCS: 72148